=== PATIENT | female | born 1985 | race Caucasian/White ===

== ENCOUNTER 2022-05-18 07:32 | Outpatient (CLI) | payer OTHER, SELFPAY ==
--- NOTE | 2022-05-18 08:01 | ECG_ITS ---
Measurements Intervals [place] Rate: 59 P: 60 W[place]: 129 QRS: 51 QRSD: 82 T: 40 QT: 418 QTc: 414 Interpretive Statements SINUS BRADYCARDIA RSR' IN V1 OR V2, PROBABLY NORMAL VARIANT NO PREVIOUS ECG AVAILABLE FOR COMPARISON Electronically Signed On 05-18-2022 15:25:38 CDT by Gucci Livingston M.D.
[2022-05-18 08:45] LABS: Hematocrit 42.2 % (37.0-47.0); Hemoglobin 13.9 g/dL (12.0-15.0)
== END 2022-05-18 07:33 | disposition home or self-care (01) ==
PROVIDERS: Visit Provider Anesthesiology
DX: Z41.1 Encounter for cosmetic surgery (principal)
CPT/HCPCS: 36415; 85014; 85018; 93005

== ENCOUNTER 2022-05-23 00:22 | Day surgery (SDC) | payer OTHER, SELFPAY ==
[2022-05-17 08:38] VITALS: BMI 22.4
--- NOTE | 2022-05-17 08:43 | PC.NURSE ---
Report to the Outpatient Waiting Room, entrance under the green pavilion located off [facility], at time 6:00 on date 05/23/22. OR Time: 7:30. Time changes happen often and if your time is changed the preop area will call you the afternoon before. - You and your visitor will be asked to self-screen and do not enter if you have any COVID symptoms. - We encourage only one visitor and NO visitors under age 16 are allowed at this time. Your visitor will receive communication by the phone number that is given day of service. - The patient visitor is requested to social distance or may leave the building when not with patient due to restrictions. - A mask is required within the hospital. Patients may have clear liquids (water, carbonated beverages, clear teas, apple juice) until 3 hours prior to surgery (4:30) with a maximum of 20 ounces. - No food from midnight until time of surgery Take the following medications with a SIP of water the morning of surgery: NONE Medications to discontinue per physician: VITAMINS/SUPPLEMENTS Date to take last dose: 05/19/22 Please no make-up, nail turkish, hairspray, perfume, deodorant, or body powder the day of surgery. No jewelry (including any body piercings) or valuables the day of surgery, leave them at home. Please take a shower or bath the night before, or the morning of, surgery with an antibacterial soap. Wear comfortable, loose fitting clothing. - Jewelry must be removed prior to entering the operating room. Rings and piercings that are not removed may be cut off. - The hospital will not accept responsibility for valuables. - Please leave all valuables, including medications, at home the day of surgery. If you are going home after surgery, a licensed stake driver must drive you home. - NO public transportation without another adult. - We recommend that an adult stay with you for 24 hours following discharge. - We also recommend that you do not drive, make important decision, drink alcoholic beverages, or take any drugs that were not prescribed by your health care provider for at least 24 hours after your discharge time. Follow any additional instructions given to you from your surgeon. If you or anyone in your household have experienced Covid symptoms in the past week, please notify your surgeon or the nurse liaison at the phone number below for possible testing. Telephone instructions given to PT EMILE NASH and asked if any additional questions and then verbalized understanding. Patient advised to call surgeon office or pre surgery nurse liaison [phone] if any additional questions.
[2022-05-23] VITALS (11 sets, daily range): BP systolic 89–134; BP diastolic 50–89; PULSE 68–101; RESP 12–18; TEMP 36.2–37.7; O2SAT 96–100
[2022-05-23 06:29] LABS: Urine Cotinine NEGATIVE
[2022-05-23] MEDS: LACTATED RINGERS 1,000 ML 30 ML IV CONT ×2 (07:00→12:15)
--- NOTE | 2022-05-23 07:02 | P.PNAN_ITS ---
Anes - Initial Pre Proc Eval Procedure: Operation Date: 05/23/22 07:30 Proposed Procedures p Bilateral Breast Mastopexy with Galaflex - Gregory Hylton MD s Abdominoplasty - Gregory Hylton MD Date/Time: 05/23/22 07:02 Surgeon: Gregory Hylton MD Pre Op Diagnosis: Skin Laxity Patient Data Age: 36 Gender: F Height: 1.65 m Weight: 56.05 kg Last Vital Signs Temp 98.1 F 05/23/22 06:09 Pulse 68 05/23/22 06:09 Resp 16 05/23/22 06:09 BP 120/63 05/23/22 06:09 Pulse Ox 100 05/23/22 06:09 O2 Del Method Room Air 05/23/22 06:09 Allergies Allergy/AdvReac Type Severity Reaction Status Date / Time No Known Allergies Allergy Unverified 05/17/22 08:37 Home Medications Medication Instructions Recorded Confirmed Type ascorbic acid (vitamin C) 500 mg 500 mg PO DAILY 05/17/22 05/23/22 History tablet (Vitamin C) multivitamin 1 tablet PO DAILY 05/17/22 05/23/22 History Laboratory Tests 05/23/22 06:13 Cotinine Negative Patient hx anesthesia problems: none Family hx anesthesia problems: none Prior surgeries: hysterectomy,BTL Results Review: All pre-operative results and documents have been reviewed as part of the pre- operative evaluation. [facility] Past Medical History Medical History Anxiety Arthritis Asthma Depression PTSD (post-traumatic stress disorder) Surgical History Surgical History H/O: hysterectomy Family History Family History Other Asthma Depression Hypertension Schizophrenia Social History Social History Years smoked: 4 Smoking status: Former smoker Tobacco type: cigarettes Smoking end date: 08/04/19 Alcohol intake: never Substance use: current Substance use type: marijuana Living arrangements: with family Spiritual care concerns: No Anes - Eval Final PreProcedure Day of Procedure 05/23/22 07:02 Patient weight: normal Heart: regular rate and rhythm Lungs: clear to auscultation Airway: Mallampati scale class 1 Neurological: alert and oriented Last oral intake: >/= 8 hours ASA classification: II Emergent: no Anesthetic plan: proceed Anesthesia type and monitoring: general Results Review: All pre-operative results and documents have been reviewed as part of the pre- operative evaluation. Informed Consent: The patient's anesthetic plan and its attendant risks and benefits were discussed with the patient/family/POA. Questions were solicited and answers provided to the satisfaction of the patient/family/POA.
--- NOTE | 2022-05-23 07:22 | WPDHPUPDATE1 ---
History and Physical Update Update Date/Time: 05/23/22 07:22 History and Physical has been reviewed, including an updated exam of the patient. There are NO changes in the patient's condition. Risks, benefits, and alternatives have been discussed and questions answered. Patient agrees to proceed with procedure.
--- NOTE | 2022-05-23 07:22 | W.PM.PROC2 ---
Procedure Note - Detailed Date of Procedure 05/23/22 Pre-op Diagnosis Skin Laxity Post-op Diagnosis Same Procedure Performed 1. Bilateral mastopexy 2. Progressive tension abdominoplasty Surgeon Gregory Hylton MD Anesthesia General Findings Bilateral inverted T Mastopexy Right superior pedicle Left superior medial pedicle Abdominal tissue removed: 964 grams Description of Procedure They are here today for the above procedures. Previously and again today the risks, benefits, alternatives were discussed in extensive detail. I wanted them to be very realistic about the risks involved as well as expectations. We discussed aftercare and what to monitor for. I was very upfront about the risks of wound breakdown leading to loss of skin, open wounds, and need for additional procedures with permanent abdominal deformity. We discussed DVT/PE risks and management. Made sure answered all of their questions to their satisfaction today and consent was obtained. They were marked in the preoperative holding area with their verification. The patient was taken to the operating room placed supine on the operating table. Anesthesia was provided by anesthesiology. A Azul catheter was started. They were prepped and draped in a standard sterile fashion. A surgical time-out was taken. Breast Eleven blade was utilized to make a stab incision and infiltrated with low volume tumescent solution. The breast was tailor tacked into place. I tailor tacked the breast into position. Placed her in a sitting position. Verified the nipple-areolar location based on preoperative planning as well as intraoperative observations and measurements in full agreement. She was placed supine. I de-epithelialized the pedicle. I then de-epithelialized the inferior breast tissue to create an autoaugmentation flap based on intercostal tuckpointer cleaner caulker. I elevated medial and lateral tissue flaps as well for planned closure. The autoaugmentation flap was sutured to the chest wall with 2-0 PDS. Strattafix was soaked on the back table with a betadine solution. This was trimmed and sutured into place with 2-0 Vicryl I closed along the IMF with 2-0 Stratafix. Along the vertical with 2-0 PDS. I closed around the Jose with 3-0 strata fix. 3-0 Monocryl along the vertical. 3-0 Stratafix along the IMF. I finally closed everything with running subcuticular 4-0 Monocryl and tissue glue. Abdomen I placed the patient in a flexed position to verify the upper and lower markings would reach. I then placed supine. A thorough abdominal examination was completed. Stab incisions were made and tumescent solution infiltrated. A 10 blade was used to make the upper incision. I continued dissection down to the level of fascia. Elevated just what was necessary for repair of the diastasis. I then again flexed the bed to verify the upper skin flap would reach the lower markings without tension. Once verified I placed her supine once again and a 10 blade used to make the lower incision. I elevated up to level the umbilicus and left the umbilicus intact on a well-vascularized stalk. The intervening tissue was removed. A 2 mm blunt cannula with 0.5% bupivicaine was injected deep to the fascia bilaterally. I plicated the diastasis recti using 0 PDO stratafix barbed suture. This was in 2 separate layers using 2 separate sutures as well. I repaired around the umbilicus leaving plenty of room for well-vascularized stalk of the umbilicus with 2-0 PDS. I also repaired lateral to the rectus using two layers of 0 PDO stratafix. The patient was flexed and starting from superior to inferior began plication using 2-0 Vicryl to obliterate all space in a standard progressive tension fashion. At the umbilicus I marked out the location of the skin and inset this with 3-0 Monocryl and 4-0 Vicryl. I continued the remainder of the plication using 2-0 Vicryl until I reached my lower planned scar line.
[2022-05-23] MEDS: BUPIVACAINE/EPINEPHRINE 0.25% 50 ML VIAL 60 ML INFILTRATE (07:29)
[2022-05-23] MEDS: NACL 0.9% IRRIG POUR BOTTLE 900 ML, GENTAMICIN SULFATE INJ 160 MG, ceFAZolin 2 GM, POVI... IRRIGATION (07:29)
[2022-05-23] MEDS: ceFAZolin 2 GM/D5W 50 ML 2 GM/50 ML BAG IVPB (07:29)
[2022-05-23] MEDS: LACTATED RINGERS IRRIG 1,000 ML, LIDOCAINE HCL 1% LOCAL INJ 50 ML, EPINEPHrine HCL INJ ... INFILTRATE (07:29)
[2022-05-23] MEDS: TRANEXAMIC ACID 1,000MG/ISO100 1,000 MG/100 ML BAG 200 MG IVPB (07:49)
[2022-05-23] MEDS: ceFAZolin SODIUM 1 GM VIAL IV PUSH (11:45)
--- NOTE | 2022-05-23 11:47 | SUR.OPER ---
URINE:400cc, EBL: 50cc
[2022-05-23] MEDS: fentaNYL CITRATE INJ (*CRX) 100 MCG/2 ML VIAL 25 MCG IV PUSH ×8 (12:30→13:55)
--- NOTE | 2022-05-23 14:11 | PC.NURSE ---
This patient, Lupe Cook, was received from PACU on 05/23/22 at 1411. Patient/family oriented to unit policies and routines.
[2022-05-23] MEDS: diazePAM (*CRX) 5 MG TABLET PO (14:36)
[2022-05-23] MEDS: LACTATED RINGERS 1,000 ML 125 ML IV CONT ×2 (14:37→22:30)
[2022-05-23] MEDS: ONDANSETRON INJ 4 MG/2 ML VIAL IV PUSH (16:20)
[2022-05-23] MEDS: carisoprodoL (*CRX) 350 MG TABLET PO ×2 (16:48→22:30)
[2022-05-23] MEDS: DOCUSATE SODIUM 100 MG CAPSULE PO (22:30)
[2022-05-23] MEDS: ENOXAPARIN 40 MG/0.4 ML SYRINGE SUB-Q (22:30)
[2022-05-23] MEDS: oxyCODONE/ACETAMINOPHEN (*CRX) 5-325 MG TABLET PO (23:50)
[2022-05-24 05:00] VITALS: BP 117/68; PULSE 100; RESP 16; TEMP 37
[2022-05-24] MEDS: carisoprodoL (*CRX) 350 MG TABLET PO (05:05)
[2022-05-24] MEDS: oxyCODONE/ACETAMINOPHEN (*CRX) 5-325 MG TABLET PO ×2 (05:05→08:22)
[2022-05-24] MEDS: SIMETHICONE 80 MG TAB.CHEW PO (05:30)
--- NOTE | 2022-05-24 07:33 | WPDPN ---
Progress Note: A&P Assessment and Plan (1) Skin laxity: Code(s): L57.4 - Cutis laxa senilis Status: Acute Assessment and Plan: Doing well after bilateral mastopexy and progressive tension abdominoplasty. Will discharge home. Today we had a lengthy about the care. Activity limitations. What to monitor for. Signs and symptoms of DVT/pulmonary embolism and how to monitor. She understands what is a medical emergency and when to dial 911 / proceed to ER. I will see her back. Call with any questions / concerns. (2) Breast ptosis: Code(s): N64.81 - Ptosis of breast Status: Acute Subjective Date/time seen: 05/24/22 07:33 Interval history: She is doing very well after bilateral mastopexy and progressive tension abdominoplasty. She is been ambulating. Tolerating diet. Pain controlled. No shortness of breath. No chest pain. No calf tenderness. Review of Systems Review of Systems: All systems reviewed & are unremarkable except as noted in HPI and below Exam Narrative: Alert oriented no obvious distress Respiratory labor Bilateral breasts are healing well. No signs of infection. No hematoma. No seroma. Good color and capillary refill. Abdomen healing well. No signs of infection. No hematoma. No seroma. Good color and capillary refill. No calf tenderness. Negative Homans. Objective Data Vital Signs Vital Signs: Vital Signs - 24 hr 05/23/22 12:15 05/23/22 12:30 05/23/22 12:45 Temperature 36.2 C L Pulse Rate 81 99 77 Respiratory Rate 14 18 14 Blood Pressure 89/50 L 130/84 134/89 Pulse Oximetry 100 100 100 Oxygen Delivery Simple Face Mask Simple Face Mask Simple Face Mask Oxygen Flow Rate 10 10 10 05/23/22 12:55 05/23/22 13:00 05/23/22 13:15 Temperature Pulse Rate 76 80 Respiratory Rate 12 13 Blood Pressure 129/85 128/73 Pulse Oximetry 99 99 Oxygen Delivery Room Air Room Air Room Air Oxygen Flow Rate 05/23/22 13:30 05/23/22 13:45 05/23/22 14:00 Temperature 37.1 C 37.2 C Pulse Rate 88 90 94 Respiratory Rate 13 14 14 Blood Pressure 126/80 128/81 127/81 Pulse Oximetry 100 98 98 Oxygen Delivery Room Air Room Air Room Air Oxygen Flow Rate 10/20/22 14:15 05/23/22 19:00 05/24/22 05:00 Temperature 37.7 C H 37.1 C 37.0 C Pulse Rate 101 H 90 100 Respiratory Rate 16 16 16 Blood Pressure 121/74 112/65 117/68 Pulse Oximetry 96 Oxygen Delivery Oxygen Flow Rate Intake/Output Intake/Output: Intake & Output 05/21/22 05/22/22 05/23/22 05/24/22 23:59 23:59 23:59 23:59 Intake Total 1500 1000 Output Total 185 400 Balance 1315 600 Meds/Results Medications: Active Medications Generic Name Dose Route Start Last Admin Trade Name Freq PRN Reason Stop Dose Admin Carisoprodol 350 mg 05/23/22 18:00 05/24/22 05:05 Carisoprodol (*Crx) 350 Mg Tablet PO 350 mg Q6HR JUNG Administration Diazepam 5 mg 05/23/22 12:21 05/23/22 14:36 Diazepam (*Crx) 5 Mg Tablet PO 5 mg TID PRN Administration Anxiety Docusate Sodium 100 mg 05/23/22 21:00 05/23/22 22:30 Docusate Sodium 100 Mg Capsule PO 100 mg Q12HR JUNG Administration Enoxaparin Sodium 40 mg 05/23/22 19:00 05/23/22 22:30 Enoxaparin 40 Mg/0.4 Ml Syringe SUB-Q 40 mg DAILY JUNG Administration Lactated Ringer's 1,000 mls @ 125 mls/hr 05/23/22 12:25 05/24/22 05:00 Lr - Lactated Ringers Iv IV CONT Infused .Q8H JUNG Infusion Morphine Sulfate 2 mg 05/23/22 12:21 Morphine Sulfate (*Crx) 2 Mg/Ml Inj IV PUSH Q2H PRN Pain Ondansetron HCl 4 mg 05/23/22 12:21 05/23/22 16:20 Ondansetron Inj 4 Mg/2 Ml Vial IV PUSH 4 mg Q6H PRN Administration Nausea Oxycodone/Acetaminophen 1 - 2 tablet 05/23/22 12:21 05/24/22 05:05 Oxycodone/Acetaminophen (*Crx) 5-325 Mg Tablet PO 1 tablet Q6H PRN Administration Pain Simethicone 80 mg 05/24/22 05:43 05/24/22 05:30 Simethicone 80 Mg Tab.Alexia
--- NOTE | 2022-05-24 07:37 | P.DS_ITS ---
DS: Admitting Diagnosis Discharge Date 05/24/2022 Admitting Diagnosis Skin laxity Breast ptosis DS: Discharge Diagnosis Discharge Diagnosis (1) Skin laxity: Code(s): L57.4 - Cutis laxa senilis Status: Acute (2) Breast ptosis: Code(s): N64.81 - Ptosis of breast Status: Acute DS: Summary Hospital Course Hospital Course: She underwent progressive tension abdominoplasty as well as bilateral mastopexy. Postoperatively she has done very well. Pain controlled. Ambulating. Tolerating diet. Will discharge home. Time spent discussing smoking cessation with patient: more than 10 minutes Time Spent with Patient Time attestation: Total time spent providing and/or coordinating discharge services: Exam Narrative: Alert oriented no obvious distress Respiratory labor Bilateral breasts are healing well. No signs of infection. No hematoma. No seroma. Good color and capillary refill. Abdomen healing well. No signs of infection. No hematoma. No seroma. Good color and capillary refill. No calf tenderness. Negative Homans. Discharge Plan Discharge Patient Disposition: Home, Self-Care Discharge Instructions: POST OPERATIVE DISCHARGE INSTRUCTIONS GREGORY HYLTON M.D. [facility] PLASTIC SURGERY [facility] [address] [place] [address] * No driving for 24 hours after anesthesia and while you are taking pain medication. * Take all prescribed medication as directed * Diet as tolerated. * No lifting or activity that raises blood pressure for 48 hours. * Regular walking / ambulation. * No showering until directed to. Once you shower do not take pain medication before showering as the combination of medication and heat may cause you to feel dizzy or pass out. * No pools or tubs for 2 weeks. * Call with any questions or concerns. * Slowly stand up straight as tolerated over the week. * No straining or lifting more than 60 pounds for 6 weeks. * Dressing Care: Abdominal binder / surgical bra 23 hours per day. If you have any questions or concerns, please call the office . If it is after hours you will be directed to the sr. manager corporate communications exchange. Shortness of breath, chest pain, or other medical emergency dial 911 / proceed to the Emergency Room. Stand Alone Forms: General Discharge Instructions Follow-up/Referrals: Gregory Hylton MD [Physician] - 1 Week Discharge Medications: Continued multivitamin Tablet 1 tablet PO DAILY ascorbic acid (vitamin C) [Vitamin C] 500 mg Tablet 500 mg PO DAILY
--- NOTE | 2022-05-24 08:06 | WPDANESPN ---
Anes - Prog Note Post-Op Date/Time: 05/24/22 08:06 Cardiovascular status: normal Respiratory status: normal Airway patency: baseline Mental status: baseline Post-Op hydration status: normal Vital Signs: Last Vital Signs Temp 37.0 C 05/24/22 05:00 Pulse 100 05/24/22 05:00 Resp 16 05/24/22 05:00 BP 117/68 05/24/22 05:00 Pulse Ox 96 05/23/22 14:15 O2 Del Method Room Air 05/23/22 14:00 O2 Flow Rate 10 05/23/22 12:45 Pain Score (VAS): 02/10 I/O: Intake & Output 05/23/22 05/24/22 05/24/22 23:59 07:59 15:59 Intake Total 1200 1000 Output Total 150 400 Balance 1050 600 Post-procedural complaints: none Patient Feedback: Patient satisfied with anesthetic care. Other Findings: Patient states feeling very anxious, recommend asking her nurse for prn prescribed medication
[2022-05-24] MEDS: DOCUSATE SODIUM 100 MG CAPSULE PO (08:22)
[2022-05-24] MEDS: diazePAM (*CRX) 5 MG TABLET PO (08:24)
== END 2022-05-24 11:25 | disposition home or self-care (01) ==
LOC: ANHSURGERY 05:54 → ANHOB2 14:16
PROVIDERS: Visit Provider Surgery Plastic and Reconstructive Surgery
PROC: (CPT 19316; principal; 2022-05-23 07:30)
PROC: (CPT 19316; 2022-05-23 07:30)
DX: Z41.1 Encounter for cosmetic surgery (principal); L57.4 Cutis laxa senilis; N64.81 Ptosis of breast; F12.90 Cannabis use, unspecified, uncomplicated
CPT/HCPCS: 19316; 15830; 15847; 80307; 99199; A9270; J0171; J0690; J1100; J1170; J1200; J1580; J1650; J2250; J2405; J2704; J2710; J3010; J7120